=== PATIENT | female | born 1965 | race Caucasian/White ===

== ENCOUNTER 2024-05-20 08:09 | Outpatient (CLI) | payer OTHER | END 2024-05-20 08:10 | disposition home or self-care (01) | LOC: BICMRI 08:09 | PROVIDERS: ATTEND Family Medicine | DX: Z08 Encounter for follow-up examination after completed treatment for malignant neoplasm (principal); Z85.3 Personal history of malignant neoplasm of breast; Z90.12 Acquired absence of left breast and nipple | CPT/HCPCS: 36415; 82565; A9577; C8908 ==